=== PATIENT | male | born 1980 | race Caucasian/White ===

== ENCOUNTER 2017-08-09 22:58 | Emergency (ER) | payer MEDICAID, SELFPAY ==
[2017-08-09 22:58] VITALS: BP 155/89; PULSE 87; RESP 17; TEMP 36.8; O2SAT 96; BMI 27.5
--- NOTE | 2017-08-09 23:57 | ED.VISSUMM ---
- ER Visit Summary Date of Service: 08/09/17 Chief Complaint: Left fifth finger laceration History of Present Illness: The patient is a 36 M who states he cut his left fifth finger on a cord this evening. He has mild bleeding. He is left-hand dominant. He states his tetanus is up-to-date. Physical Examination: Vital signs are unremarkable. Patient is in no acute distress. Left upper extremity examination is significant for a very superficial, approximately 2 cm in length, laceration over the DIP joint of the left fifth finger. He has full range of motion. He has normal sensation and normal cap refill. Test Results: [] Emergency Department Course and Treatment: Patient declines digital block or sutures. Wound was cleansed. Dermabond was placed over the wound and dressing is placed. Treatment Plan: [] Disposition: Discharge Impression: Superficial left fifth finger laceration status post skin glue This note was generated with [employer] dictation software. It may contain incorrect words, spelling, and punctuation that were not noted in review of the chart prior to signing ED Disposition - Plan for ED Patient: Disposition: Home or Assisted Living Chief Complaint: Laceration Instructions: ED Laceration Ext Skin Glue
[2017-08-10 00:06] VITALS: RESP 18
== END 2017-08-10 00:07 | disposition home or self-care (01) ==
PROVIDERS: Emergency Provider Emergency Medicine
DX: S61.217A Laceration without foreign body of left little finger without damage to nail, initial encounter (principal); Z85.828 Personal history of other malignant neoplasm of skin; W26.8XXA Contact with other sharp object(s), not elsewhere classified, initial encounter; Y93.89 Activity, other specified; Y92.009 Unspecified place in unspecified non-institutional (private) residence as the place of occurrence of the external cause; Y99.8 Other external cause status
CPT/HCPCS: 12001; 99282

== ENCOUNTER 2017-09-19 18:09 | Emergency (ER) | payer MEDICAID, SELFPAY ==
[2017-09-19 18:10] VITALS: BP 142/85; PULSE 91; RESP 18; TEMP 36.3; O2SAT 99; BMI 29.0
[2017-09-19] MEDS: LORazepam 1 MG Tablet 2 MG PO (18:52)
--- NOTE | 2017-09-19 18:52 | ED.VISSUMM ---
- ER Visit Summary Date of Service: 09/19/17 Chief Complaint: Mental health evaluation History of Present Illness: The patient is a 36 M presenting for evaluation for a mental health evaluation. Patient apparently has a past history of bipolar. He used to be on medications, took himself off multiple years ago, and stopped following with counseling center. Patient states that over the course of multiple months he feels that he has been somewhat escalating. He does admit that he has anger issues, and he seemed to be centered around his significant other. Patient states that when she nags with him and makes him feel significantly angry, and if she worn a female he would potentially confront her physically but he states that he would never do that. Patient was brought in by his significant other for psychiatric evaluation because apparently he made some comments about possible self-harm. Patient denies that he has any feelings of self-harm, states that he would not do that especially because of his child. Patient states that he does not have any sort of hallucinations or homicidal ideations. He does have an appointment coming up with counseling center on 30 September, states that he plans to keep that. Patient states that he does feel he would benefit from going back on medications. Physical Examination: Vital signs are within normal limits, patient is afebrile. General: Patient is well-nourished well-developed and in no acute distress. Head: Normocephalic, atraumatic Eyes: Pupils equal round and reactive bilaterally, extra occular motion intact bialterally ENT: Moist mucous membranes Neck: Supple, no lymphadenopathy, no JVD, no meningismus CVS: Heart regular rate and rhythm, no murmurs, rubs or gallops, radial pulses 2+ bilaterally Resp: Respirations nondistressed, lung sounds clear bilaterally Abdomen: Soft, nontender, nondistended, no palpable masses, normal bowel sounds Back: Nontender Extremities: Nontender, atraumatic, active full range of motion, no peripheral edema Skin: warm, no rashes, no petechia Neuro: Alert and oriented x 4, CN 2-12 intact, no lateralizing neurological defecits Psyc: Patient has good insight good judgment of normal appearance. He does seem somewhat irritable has intermittent pressured speech and is walking around the room. He has no evidence of internal stimulation no suicidal thoughts homicidal thoughts hallucinations or delusions. Emergency Department Course and Treatment: Patient presented for psychiatric evaluation. He did have a conversation with patient both with his significant other in the room and with her out of the room. While he does appear to be agitated, he has good sit insight, good judgment, and actually shows relatively good restraint. Patient was given Ativan in the emergency department. He is behavior was observed in the emergency department. At this point I do not believe that he is a risk to himself or others, I had a very sylvia conversation with him about removing himself from situations that cause him to feel angry and out of control, he does agree to this. Had a discussion with the counseling center who agrees to follow the patient up as previously scheduled. Patient will be discharged with a protracted course of Ativan for assistance with his symptoms Disposition: Discharge Impression: 1. Bipolar This note was generated with [employer] dictation software. It may contain incorrect words, spelling, and punctuation that were not noted in review of the chart prior to signing ED Disposition - Plan for ED Patient: Disposition: Home or Assisted Living Chief Complaint: Mental Health Diagnosis: Bipolar 1 disorder Instructions: ED Manic Depression Prescriptions: Lorazepam [Ativan] 1 mg PO TID PRN 3 Days #9 tab PRN Reason: Anxiety Additional Instructions: Follow-up with the counseling center as previously scheduled
[2017-09-19 19:24] VITALS: BP 155/91; PULSE 84; RESP 16; O2SAT 98
== END 2017-09-19 19:25 | disposition home or self-care (01) ==
PROVIDERS: Emergency Provider Emergency Medicine
DX: F31.9 Bipolar disorder, unspecified (principal); Z72.0 Tobacco use
CPT/HCPCS: 99283

== ENCOUNTER 2017-11-28 19:20 | Emergency (ER) | payer MEDICAID, SELFPAY ==
[2017-11-28 19:21] VITALS: BP 110/94; PULSE 81; RESP 14; TEMP 36.7; O2SAT 99; BMI 28.8
--- NOTE | 2017-11-28 19:29 | RAD_ITS ---
STUDY: X-RAY - RIGHT SHOULDER REASON FOR EXAM: Male, 37 years old. Pain TECHNIQUE: 4 view(s) of the shoulder. COMPARISON: 08/06/2014 FINDINGS: There is no evidence of fracture or dislocation. There are no significant degenerative changes. There are no radiodense foreign bodies. RAD/Shoulder min 2 Views IMPRESSION: No fracture or dislocation. Electronically Signed: Tucker Corral, at 20:28 EDT Tel , Service support ,
[2017-11-28] MEDS: Naproxen 500 MG Tablet PO (19:47)
[2017-11-28] MEDS: HYDROcodone Bitartrate/Apap 5/325 Tablet PO (19:47)
--- NOTE | 2017-11-28 20:03 | ED.VISSUMM ---
- ER Visit Summary Date of Service: 11/28/17 Chief Complaint: Atraumatic right shoulder pain for 1 month History of Present Illness: The patient is a 37 M who presents with right shoulder pain that he localizes over the AC joint supraspinatus muscle on the right side. There is no history of trauma. 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 He denies paresthesia, anesthesia or motor weakness. He denies radicular pain. He denies any cardiac respiratory symptoms. He states he has taken ibuprofen without improvement. He does do overhead work. Physical Examination: Vital signs are noted. There is pain the patient over the AC joint and trapezius muscle. Axillary, median, radial and ulnar function intact. DTRs are 1-2+ and symmetric at the biceps, brachialis and triceps. Radial pulses palpable. There is discomfort that he localizes to the AC joint with abduction past 90?. Negative drop test. Test Results: Three-view x-ray of the right shoulder was obtained. There is no evidence of any abnormality i.e. clips, lytic lesions, AC separation, clavicle fracture or proximal humeral fracture. Emergency Department Course and Treatment: In light of patient's history x-ray was obtained. Concern patient has impingement syndrome. Will assess for calcification of the supraspinatus tendon. Treatment Plan: Since he has no contraindication to NSAIDs you was treated with Naprosyn and referred to his primary care physician. Disposition: Discharged to home Impression: Impingements syndrome right shoulder initial encounter This note was generated with [employer] dictation software. It may contain incorrect words, spelling, and punctuation that were not noted in review of the chart prior to signing ED Disposition - Plan for ED Patient: Disposition: Home or Assisted Living Chief Complaint: Upper Extremity Injury Instructions: ED Tendinitis Rotator Cuff Prescriptions: Naproxen [Naprosyn] 500 mg PO BID #20 tab Referrals: Care Physician,No Primary [Primary Care Provider] - Additional Instructions: Follow-up with your primary care physician. Your primary care physician was assigned to by care source. He will need to look on your insurance card.
[2017-11-28 20:25] VITALS: PULSE 80; RESP 16
== END 2017-11-28 20:26 | disposition home or self-care (01) ==
PROVIDERS: Emergency Provider Emergency Medicine
DX: M75.41 Impingement syndrome of right shoulder (principal); Z72.0 Tobacco use; Z79.899 Other long term (current) drug therapy
CPT/HCPCS: 73030; 99283

== ENCOUNTER 2018-01-05 21:01 | Emergency (ER) | payer MEDICAID, SELFPAY ==
[2018-01-05 21:03] VITALS: BP 134/98; PULSE 97; RESP 18; TEMP 36.9; O2SAT 97; BMI 30.4
[2018-01-05 21:21] LABS: Absolute Lymphocyte Count 2.62 X10^3/ul (0.83-4.51); Absolute Neutrophil Count 2.9 X10^3/uL (2.0-7.7); Basophil# 0.01 X10^3/uL; Basophil% 0.2 % (0-1); Eosinophils% 1.7 % (0-5); Hematocrit 42.9 % (40-54); Hemoglobin 14.2 g/dl (13.0-16.5); Lymphocyte # 2.62 X10^3/ul (4.0); Lymphocyte % 43.2 % (19-41); Mean Corp Hgb Conc 33.1 g/gl (32-36); Mean Corpuscular Hgb 29.2 pg (27.0-32.0); Mean Corpuscular Volume 88.3 fL (80-94); Mean Platelet Vol. 11.9 fl (6.2-12.0); Monocyte# 0.44 X10^3/uL; Monocyte% 7.3 % (0-10); Neutrophil # 2.89 X10^3/uL (2.7-7.7); Neutrophil % 47.6 % (47-70); Platelet Count 141 K/mm3 (150-450); RBC Distribution Width CV 13.1 % (11.6-14.6); RBC Distribution Width SD 42.5 fl (35.1-43.9); Red Blood Count 4.86 M/mm3 (4.6-6.2); White Blood Count 6.1 K/mm3 (4.4-11.0)
[2018-01-05 21:27] LABS: POSITIVE COUNT NO; POSITIVE DIFFERENTIAL NO; POSITIVE MORPHOLOGY NO
[2018-01-05 21:43] LABS: Anion Gap 9 (5-15); BUN 27 mg/dL (7-18); BUN/Creat Ratio 19.7 RATIO (10-20); Calcium,Total 8.9 mg/dL (8.5-10.1); Chloride 110 mmol/L (98-107); Creatinine, Serum 1.37 mg/dL (0.70-1.30); EST Glomerular Filtration Rate 62 mL/min (>60); Est Glom Filt Rate - Afr Amer 75 mL/min (>60); Estimated Creatinine Clearance 88.23 ml/min; Glucose 144 mg/dL (74-106); Potassium 3.6 mmol/L (3.5-5.1); Sodium Level 145 mmol/L (136-145)
--- NOTE | 2018-01-05 21:49 | ED.RN ---
CALLED [facility], [employer] ENGINEER STATED SHE WILL LET SHARITA KNOW.
[2018-01-05 22:00] LABS: Amphetamine Urine VISTA NEGATIVE (<1000 ng/mL); Barbiturate Urine VISTA NEGATIVE (< 200 ng/mL); Benzodiazepine Urine VISTA NEGATIVE (< 200 ng/mL); Cocaine Urine VISTA NEGATIVE (< 300 ng/mL); Ecstacy Urine VISTA NEGATIVE (< 500 ng/mL); Methadone Urine VISTA NEGATIVE (< 300 ng/mL); PCP Urine VISTA NEGATIVE (< 25 ng/mL); THC Urine VISTA POSITIVE (< 50 ng/mL); Vista UDS pH Range 6
[2018-01-05 22:02] VITALS: RESP 16
[2018-01-05 22:09] LABS: Alcohol, Blood (Medical)-Serum < 3.0 mg/dL
--- NOTE | 2018-01-05 22:18 | ED.RN ---
SHARITA IS ON THE WAY TO SEE PT.
[2018-01-05 23:00] VITALS: RESP 18
--- NOTE | 2018-01-05 23:50 | ED.DEP ---
ED Disposition - Plan for ED Patient: Chief Complaint: Suicidal Instructions: ED Contract, No Harm Referrals: Ancelmo Telles DO [Primary Care Provider] -
--- NOTE | 2018-01-05 23:50 | ED.DEP ---
ED Disposition - Plan for ED Patient: Chief Complaint: Suicidal Instructions: ED Contract, No Harm Referrals: Ancelmo Telles DO [Primary Care Provider] - Counseling[facility]Center [GROUP OF PHYSICIANS] -
--- NOTE | 2018-01-05 23:57 | ED.RN ---
this rn goes to discharge pt, and give written instructions. pt hangs up phone, and states, i don't want it. pt leaves ed without paper work. pt signed no harm contract.
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
== END 2018-01-05 23:59 | disposition home or self-care (01) ==
LOC: ED 21:57
PROVIDERS: Emergency Provider Emergency Medicine; Family Provider Pediatrics; PCP Pediatrics
DX: R45.851 Suicidal ideations (principal); F41.9 Anxiety disorder, unspecified; Z79.899 Other long term (current) drug therapy
CPT/HCPCS: 80048; 80307; 80320; 85025; 99283; G0480

== ENCOUNTER 2019-06-20 18:21 | Emergency (ER) | payer SELFPAY ==
[2018-11-11 21:55] VITALS: BMI 32.1
[2019-06-20 18:22] VITALS: BP 149/84; PULSE 104; RESP 18; TEMP 36.7; O2SAT 97; BMI 33.7
--- NOTE | 2019-06-20 18:30 | ED.VIS.GEN ---
History of Present Illness Chief Complaint: Upper Extremity Injury Detail of Chief Complaint: Atraumatic left hand swelling and mouth pain Informant: Patient Onset: Days Context: Sudden Onset Timing: Continuous Quality: Pain Location: Tongue and mouth Current Severity: Mild Maximum Severity: Severe Worsened by: If he touches the sores Relieved by: Nothing Associated Symptoms: No associated symptoms Narrative: Patient is a 38-year-old [id number] male who presents with 2 chief complaints. First complaint is tongue and mouth pain that started 2 to 3 days ago. He does not believe he had contact with anyone that may have had cold sores or herpetic infection. He denies fever, chills night sweats. He denies headache, photophobia, neck pain or neck stiffness. He denies rhinorrhea, congestion or postnasal drainage. He denies ear pain, ringing in his ears or decreased hearing. He denies problems with his balance. He denies problems with speech or swallowing. He denies cardiac respiratory symptoms. He also complains of atraumatic nonpainful swelling of his left hand. He may have fallen asleep in a chair. He denies paresthesia, anesthesia or motor weakness. He has no other complaints. Prior similar symptoms: No Recent Illness/Hospitalization: No - Past Medical History (1) No significant past medical history Status: Acute Past Medical History - Allergies and Home Meds Allergies/Adverse Reactions: Allergies Penicillins Allergy (Verified 06/20/19 18:22) Hives Primary Care Physician: NOT,DEFINED [NON-STAFF] - Prior records reviewed: Yes Surgical History: noncontributory Lives: Alone Smoking Status: Never smoker Alcohol: None Drugs: None Review of Systems General: Denies: Chills, Fever, Malaise, Sweats Eyes: Denies: Visual changes - bilaterally, Blurred Vision - bilaterally, Diplopia ENT: Denies: Bilateral ear pain, Rhinorrhea, Sore throat Cardiovascular: Denies: Chest pain, Palpitations Respiratory: Denies: Dyspnea, Cough, Dyspnea on exertion Musculoskeletal: Reports: Swelling. Denies: Myalgias, Arthralgias, Neck pain, Back pain, Extremity Pain Skin: Denies: Rash, Wounds Neurological: Denies: Headache, Weakness, Parasthesia, Numbness Hematologic: Denies: Easy bruising, Easy bleeding Allergy: Denies: Uticaria, Swelling of the mouth, Swelling of the tongue Physical Exam Vital Signs/Narrative: Vital Signs Temp Pulse Resp BP Pulse Ox 06/20/19 18:22 98.0 F 104 H 18 149/84 H 97 Inital Vital Signs reviewed: Yes General: Well nourished, Well developed, No Acute Distress Head: Normocephalic, Atraumatic Eyes: Perrl, EOMI. Negative for: Pale conjunctiva, Scleral icterus ENT: Moist mucous membranes, - - With herpetic lesions tongue, buccal mucosa and posterior pharynx. Neck: Supple, No JVD, - - There is no angioedema. Uvula is midline.. Negative for: Nontender, No lymphadenopathy Cardiovascular: Regular rate, Regular rhythm, No murmurs, Normal S1, Normal S2 Extremities: Nontender, Edema - There is pitting edema of the left hand. There is no pain the patient over the distal radius ulna, carpal bones, metacarpal bones or phalanges. Median, radial and ulnar function intact. There is no evidence of trauma and there is no history of trauma.. Negative for: No edema, Tenderness Skin: Normal color, No rash, No Trauma. Negative for: Cyanosis, Diaphoresis, Jaundice Neurological: Alert, Oriented x3, Cranial nerves II-XII grossly intact, Normal Strength, Normal Sensation, Normal DTR Diagnostic/Tx/Re-eval - Medical Decision Making Suspect patient's swelling is secondary to dependent edema. With regards to his mouth pain he has herpetic lesions. Will treat with Magic mouthwash and symptoms started 3 days ago. 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
[2019-06-20 18:53] VITALS: RESP 20
== END 2019-06-20 18:54 | disposition home or self-care (01) ==
PROVIDERS: Emergency Provider Emergency Medicine; Family Provider Pediatrics; PCP Pediatrics
DX: I89.0 Lymphedema, not elsewhere classified (principal); B00.2 Herpesviral gingivostomatitis and pharyngotonsillitis
CPT/HCPCS: 99282

== ENCOUNTER 2023-01-24 17:32 | Emergency (ER) | payer MEDICAID, SELFPAY ==
[2023-01-24 17:33] VITALS: BP 141/90; PULSE 99; RESP 16; TEMP 36.4; O2SAT 97; BMI 27.3
--- NOTE | 2023-01-24 17:42 | EX.ED.DYSGE1 ---
HPI History of Present Illness Chief Complaint: Cellulitis PFSH PFSH Home Medications Magic Mouth Wash 5 ml PO Q4H PRN PRN pain #100 mL 06/20/19 [Rx Last Taken Unknown] sulfamethoxazole 800 mg-trimethoprim 160 mg tablet (Bactrim DS) 1 tab PO BID 7 days #14 tabs 01/24/23 [Rx Last Taken Unknown] Allergy/AdvReac Type Severity Reaction Status Date / Time Penicillins Allergy Hives Verified 06/20/19 18:22 Social History Smoking Status: Never smoker EXAM Physical Exam Const Vital Signs: 01/24/23 17:33 Temperature 97.6 F L Temperature Source Temporal Pulse Rate 99 Respiratory Rate 16 Blood Pressure 141/90 H Blood Pressure Mean 107 Pulse Ox 97 Oxygen Delivery Method Room Air MDM MDM MDM Narrative Medical decision making narrative: HISTORY OF PRESENT ILLNESS: 42-year-old male here for left leg redness and swelling REVIEW OF SYSTEMS: Pertinent positives: Left leg redness Pertinent negatives: Fever, chills PHYSICAL EXAM: Nursing triage notes reviewed, Vital signs reviewed Constitutional: please see mdm Extremities: No edema, intact pulses in bilateral lower extremities Neuro: Intact sensation L1-S1 dermatomal distributions. Intact 5/5 strength in hip flexion (T12-L3). Knee extension (L2-L4). Ankle dorsiflexion (L4-L5). Ankle plantar flexion (S1). Great toe extension (L5). 2+ patellar and Achilles DTRs. Skin: Erythema noted around wounds to the left anterior tibia, no lacerations, no fluctuance, induration, purulent drainage noted. No crepitus or bullae noted. MEDICAL DECISION MAKING: Chief Complaint: Leg redness External records reviewed: No recent ED visits Factors affecting care: history of bipolar disorder Social determinants of health: History of mental health disorder ALL IMAGES (IF OBTAINED) HAVE BEEN PERSONALLY REVIEWED AND INTERPRETED BY MYSELF. MDM Narrative: Patient was hemodynamically stable, afebrile, nontoxic-appearing. Exam I considered the following differential diagnosis: Cellulitis, abscess, necrotizing fasciitis No clinical exam evidence of necrotizing fasciitis or abscess. Will give prophylactic anti-MRSA antibiotics. The patient and/or family, caregivers express understanding. The patient and/or family, caregivers agrees with the plan. Shared decision making: I will have a discussion with the patient and or visitors regarding risk/benefits of further testing or admission. They will be made aware of of the risk/benefits inherent in this decision they will be given the opportunity to voice understanding. Total critical care time today provided was at least 0 minutes. This excludes separately billable procedures. Critical care time (if documented) is secondary to the patient having high probability of clinically significant/life threatening deterioration in the patient's condition which required my urgent intervention. Discharge Plan Triage Chief Complaint: Cellulitis ED Provider: Neil Segura Dx/Rx/DC Orders Clinical Impression: Cellulitis Instructions: Cellulitis Dc Prescriptions: New sulfamethoxazole-trimethoprim [Bactrim DS] 800-160 mg tablet 1 tab PO BID 7 Days Qty: 14 0RF No Action Magic Mouth Wash 5 ml PO Q4H PRN PRN (Reason: pain) Qty: 100 0RF Rx Instructions: Pharmacist: Compound with equal parts DiphenhydrAMINE, Mylanta, and Lidocaine Viscous. Primary Care Provider: Ancelmo Telles Referrals: Ancelmo Telles DO [Primary Care Provider] - Activity Restrictions/Additional Instructions: Thank you for trusting us with your care today! Please take Tylenol (2 pills, 650 mg), ibuprofen (2 pills, 400 mg) every 6 hours as needed for pain and fever control. Please take antibiotics till course complete. Please return to the emergency department if your symptoms change or worsen. Specifically if develop worsening redness that migrates up the leg over a matter of hours. If you cannot take antibiotics by mouth. If you have severe pain that is not improved by the above regiment. Please follow with your primary care physician for further outpatient evaluation and management. Disposition Disposition: Home, Self Care
[2023-01-24] MEDS: Smz/Tmp Ds Tablet 1 TABLET PO (18:26)
== END 2023-01-24 18:41 | disposition home or self-care (01) ==
PROVIDERS: Emergency Provider Emergency Medicine; Visit Provider Emergency Medicine
DX: L03.116 Cellulitis of left lower limb (principal)
CPT/HCPCS: 99283

== ENCOUNTER 2023-02-11 08:29 | Outpatient (REF) | payer SELFPAY ==
[2023-02-11 08:30] VITALS: PULSE 90; RESP 14; TEMP 36.3; O2SAT 99
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
[2023-02-11] MEDS: Lidocaine/Epi/Tetracaine 50 ML 1 APPLIC TOPICAL (09:26)
[2023-02-11] MEDS: Ondansetron ODT 4 MG Tablet 8 MG PO (09:26)
[2023-02-11] MEDS: Lidocaine 1% /Epi 1:100 (20ml) 20 ML Vial INFILT (11:00)
[2023-02-11] MEDS: Naproxen 250 MG Tablet 500 MG PO (11:00)
== END 2023-02-11 11:06 ==
LOC: EDREF 08:29
PROVIDERS: Visit Provider Emergency Medicine
DX: S16.1XXA Strain of muscle, fascia and tendon at neck level, initial encounter (principal); S00.83XA Contusion of other part of head, initial encounter; Y04.0XXA Assault by unarmed brawl or fight, initial encounter; Y92.149 Unspecified place in prison as the place of occurrence of the external cause
CPT/HCPCS: 70450; 72125; 99285

== ENCOUNTER → 2023-06-22 | Outpatient (CLI) | payer MEDICAID, SELFPAY ==
--- NOTE | 2023-06-22 10:11 | RAD_ITS ---
STUDY: X-RAY - THORACIC SPINE REASON FOR EXAM: Male, 42 years old. Mid back pain TECHNIQUE: 4 view(s) of the thoracic spine were obtained. COMPARISON: None. FINDINGS: Normal kyphosis of the thoracic spine. There is no substantial scoliosis. Normal thoracic vertebrae and endplates. Normal disc space heights. The soft tissue structures are unremarkable. RAD/Thoracic Spine 3 Views IMPRESSION: Normal x-ray examination of the thoracic spine. Electronically Signed: Garland Carrion MD at 10:39 EST ,
== END | disposition home or self-care (01) ==
LOC: RAD 10:06
PROVIDERS: PCP Nurse Practitioner Family; Referring Provider Nurse Practitioner Family; Visit Provider Nurse Practitioner Family
DX: R52 Pain, unspecified (principal)
CPT/HCPCS: 72072

== ENCOUNTER 2024-11-20 16:17 | Emergency (ER) | payer MEDICAID, SELFPAY ==
[2024-11-20 16:17] VITALS: BP 164/99; PULSE 96; RESP 25; TEMP 37.1; O2SAT 96; BMI 30.7
[2024-11-20] MEDS: dexAMETHasone 4 MG Tablet 8 MG PO (16:37)
--- NOTE | 2024-11-20 16:48 | EX.ED.VIS.UR ---
HPI HPI - URI History of Present Illness Chief Complaint: Sore Throat Informant: patient Narrative Narrative: 5-day history of sore throat productive cough. Chills. Right ear pain. No trouble swallowing. Tobacco history. Denies vomiting diarrhea. Denies urinary symptoms. Denies fevers. Allergy to penicillin causing hives. ROS ROS ED Constitutional Constitutional ED: Reports chills; Denies fever(s) ENT ENT ED: Reports ear pain and sore throat Cardiovascular Cardiovascular: Denies chest pain Respiratory/Chest Respiratory/Chest: Reports cough Gastrointestinal Gastrointestinal: Denies diarrhea or vomiting Musculoskeletal Musculoskeletal: Denies none Integumentary Denies rash or wounds Neurologic Neurologic: Denies weakness PFSH PFSH Medical History unable to obtain Home Medications ?Medication ?Instructions ?Recorded ?Last Taken ?Type Magic Mouth Wash 5 ml PO Q4H PRN PRN pain #100 mL 06/20/19 Unknown Rx sulfamethoxazole 800 1 tab PO BID 7 days #14 tabs 01/24/23 Unknown Rx mg-trimethoprim 160 mg tablet (Bactrim DS) Allergy/AdvReac Type Severity Reaction Status Date / Time Penicillins Allergy Hives Verified 11/20/24 16:17 Social History Smoking Status: Unknown if ever smoked EXAM Physical Exam Const Vital Signs: 11/20/24 16:17 Temperature 98.8 F Temperature Source Oral Pulse Rate 96 Respiratory Rate 25 H Blood Pressure 164/99 H Blood Pressure Mean 120 Pulse Ox 96 Oxygen Delivery Method Room Air Positive well nourished and well developed General Appearance ED: well developed HEENT HEENT Narrative: Normal TMs bilaterally. Very minimal posterior pharyngeal erythema 1+ symmetric tonsils bilaterally. Uvula midline. No exudates. No trismus. normocephalic and atraumatic Eyes General Eye ED: Yes normal appearance of both eyes Neck full ROM Resp normal respiratory effort and normal air movement Cardio regular rate and regular rhythm GI soft to palpation Extremity normal to inspection and full ROM Neuro oriented x3 Skin no rashes or lesions noted and no wounds MDM MDM MDM Narrative Medical decision making narrative: Interventions / MDM: Differential diagnosis: Upper respiratory infection, pharyngitis Diagnosis considered but do not suspect: N/A My EKG interpretation: N/A Imaging independently reviewed and interpreted by myself: N/A External documents reviewed: N/A Test considered but not ordered:N/A ED course: Patient vital stable sore throat with productive cough. Normal ear exam. Reporting chills without any urinary symptoms. Dexamethasone ordered, strep test ordered. Two-view chest x-ray ordered. 1645: Reported by nursing patient refused chest x-ray. 1650: Per nursing dexamethasone was given nasal swab was sent. Help patient eloped the department before any results. 2300: Evaluated strep test results at this time was negative. Re-evaluation: stable Disposition discussed with patient/family/significant other: Eloped Case discussed with consulting clinician: N/A This note was generated with [employer] dictation software. It may contain incorrect words, spelling, and punctuation that were not noted in checking the note before signing. Discharge Plan Triage Chief Complaint: Sore Throat ED Provider: Rakan Mandujano Dx/Rx/DC Orders Clinical Impression: Pharyngitis, Acute upper respiratory infection Prescriptions: No Action Magic Mouth Wash 5 ml PO Q4H PRN PRN (Reason: pain) Qty: 100 0RF Rx Instructions: Pharmacist: Compound with equal parts DiphenhydrAMINE, Mylanta, and Lidocaine Viscous. sulfamethoxazole-trimethoprim [Bactrim DS] 800-160 mg tablet 1 tab PO BID 7 Days Qty: 14 0RF Primary Care Provider: Willy Garcia Referrals: Willy Garcia, [id number] [Primary Care Provider] - Print Language: Stateless Disposition Disposition: Elopement Discharge Date/Time: 11/20/24 17:19
--- NOTE | 2024-11-20 17:15 | ED.RN ---
Pt eloped prior to retirement sales consultant
== END 2024-11-20 17:19 | disposition left against medical advice (07) ==
PROVIDERS: Emergency Provider Emergency Medicine; PCP Nurse Practitioner Family; Visit Provider Emergency Medicine
DX: J02.9 Acute pharyngitis, unspecified (principal)
CPT/HCPCS: 87651; 99282